=== PATIENT | male | born 1970 ===

== ENCOUNTER → 2018-12-01 21:12 | Outpatient (REF) | payer OTHER, SELFPAY ==
[2018-12-01 21:17] LABS: Bacteria Urine None Seen; RBC Urine None Seen (0-5/HPF); WBC Urine None Seen (0-5/HPF)
[2018-12-01 21:50] LABS: Appearance Urine UA CLEAR; Bilirubin Urine UA NEGATIVE (NEGATIVE); Color Urine UA YELLOW; Glucose Urine UA NEGATIVE (Negative); Ketones Urine UA NEGATIVE (NEGATIVE); Leukocyte Esterase Urine UA NEGATIVE (NEGATIVE); Nitrite Urine UA NEGATIVE (Negative); Occult Blood Urine UA NEGATIVE (Negative); Protein Urine UA NEGATIVE (Negative); Specific Gravity Urine UA 1.015 (1.000-1.035); Urobilinogen Urine UA 0.2 E.U./dL (0.2)
[2018-12-01 22:09] LABS: Urine Comments Microscopic Normal
[2018-12-01 22:41] LABS: Thyroid Stimulating Hormone 1.28 uIU/mL (0.47-4.68)
[2018-12-01 23:14] LABS: Alanine Aminotransferase 55 IU/L (21-72); Albumin 4.5 g/dL (3.5-5.0); Albumin Globulin Ratio 1.5 (1.0-2.8); Alkaline Phosphatase 58 U/L (38-126); Aspartate Aminotransferase 37 IU/L (17-59); BUN Creatinine Ratio 10.9 (6-22); Bilirubin Total 0.8 mg/dL (0.2-1.3); Blood Urea Nitrogen 12 mg/dL (9-20); Calcium 9.8 mg/dL (8.4-10.2); Carbon Dioxide 29 mmol/L (22-32); Chloride 103 mmol/L (98-107); Cholesterol 250 mg/dL (140-199); Estimated Glomerular Filt Rate > 60.0 mL/min (>60); Globulin 3.1 g/dL (1.7-4.1); Glucose 81 mg/dL (70-100); HDL Cholesterol 55 mg/dL (40-60); LDL Cholesterol Calculated 183 mg/dL (<100); Potassium 4.9 mmol/L (3.4-5.1); Sodium 142 mmol/L (137-145); Total Protein 7.6 g/dL (6.3-8.2); Triglycerides 61 mg/dL (35-150)
[2018-12-01 23:15] LABS: HEMOLYSIS < 15 (0-50)
[2018-12-02 03:37] LABS: Add Manual Diff / Slide Review NO; Basophils Percent Auto 0.5 % (0-2); Eosinophils Percent Auto 5.5 % (2-4); Hematocrit 49.4 % (41-53); Hemoglobin 16.9 g/dL (13.5-17.5); Lymphocytes Percent Auto 19.1 % (25-40); Mean Corpuscular HGB Conc 34.2 % (30-36); Mean Corpuscular Hemoglobin 30.7 PG (26-34); Mean Corpuscular Volume 89.7 fL (80-100); Monocytes Percent Auto 9.6 % (3-14); Neutrophils Absolute Auto 4100 /uL (1500-7000); Neutrophils Percent Auto 65.3 % (50-75); Platelet Count 189 X10^3/uL (150-400); Red Blood Cell Count 5.51 X10^6/uL (4.5-5.9); Red Cell Distribution Width 13.4 % (11.6-14.8); White Blood Cell Count 6.3 X10^3/uL (4.5-11.0)
== END ==
LOC: LAB 21:12
PROVIDERS: Visit Provider Naturopath
DX: Z00.00 Encounter for general adult medical examination without abnormal findings (principal); R35.0 Frequency of micturition; R53.83 Other fatigue
CPT/HCPCS: 36415; 80053; 80061; 81001; 84153; 84443; 85025